=== PATIENT | female | born 1945 | race Hispanic/Latino ===

== ENCOUNTER → 2020-08-14 | Outpatient (CLI) | payer MEDICARE ==
--- NOTE | 2020-08-14 16:00 | Diagnostic Imaging Report ---
EXAM: BONE MINERAL DENSITY HISTORY: Menopause COMPARISON: None DISCUSSION: Evaluation of the left hip and lumbar spine was performed utilizing DEXA Hologic bone densitometer. The study is technically adequate. The patient's fracture risk is compared to an age-matched control. The patient denies prior surgery/fracture of the spine, hips or forearm. Left hip femoral neck bone mineral density: 0.638 g/cm2, T-score is -2, Z-score is 0. Left hip total bone mineral density: 0.759 g/cm2, T-score is -1.5, Z-score is 0.2. Lumbar spine total bone mineral density: 0.71 gm/cm2, T-score is -3.1, Z-score is -0.3. Impression: Bone mineralization by WHO Classification is osteoporosis, the fracture risk is high. Signed by: Dr. Reynaldo Brizuela M.D. on 08/14/2020 3:57 PM
== END ==
LOC: EDBD 13:54 → DX 13:54
PROVIDERS: ATTEND Family Medicine
DX: M81.0 Age-related osteoporosis without current pathological fracture (principal); Z78.0 Asymptomatic menopausal state
CPT/HCPCS: 77080

== ENCOUNTER → 2022-03-25 | Outpatient (CLI) | payer OTHER | LOC: US 07:34 | PROVIDERS: ATTEND Family Medicine | DX: K80.80 Other cholelithiasis without obstruction (principal) | CPT/HCPCS: 76700 ==